=== PATIENT | male | born 1970 | race Caucasian/White ===

== ENCOUNTER 2016-06-22 17:00 | Emergency (ER) | payer BC ==
[2016-06-22] MEDS: NORMAL SALINE 1,000 ML IV ONE ×2 (17:48→19:32)
[2016-06-22 17:56] LABS: Hemoglobin 16.8 gm/dL (13.5-18.0); Mean Cell Volume 88.7 fl (78-100); Mean Corpuscular Hemoglobin 31.1 pg (27-31); Mean Platelet Volume 9.4 fl (6.0-9.5); Neutrophil # 12.5 K/mm3 (1.3-6.0); Neutrophil % 88.2 % (42-75.0); Platelet Count 209 K/mm3 (150-450); Red Blood Count 5.41 M/mm3 (4.7-6.0); Red Cell Distribution Width 13.2 % (11.5-14.0); White Blood Count 14.1 K/mm3 (4.0-10.5)
[2016-06-22 18:08] LABS: Albumin * 3.7 gm/dl (3.4-5.0); Anion Gap 13.4 mmol/L (6.8-13.8); BUN/Creatinine Ratio 16.3 (9.0-21.6); Bilirubin, Total 0.6 mg/dL (0.0-1.1); Calcium * 9.1 mg/dL (7.9-10.9); Carbon Dioxide 25.2 mmol/L (24-32.6); Potassium 4.6 mmol/L (3.4-4.6); Total Protein 7.4 gm/dL (6.2-8.2)
[2016-06-22] MEDS: PROMETHAZINE HCL 25 MG in DEXTROSE 5 % IN WATER 50 ML IV ONE ×2 (18:20)
--- NOTE | 2016-06-22 18:26 | ERNOTE ---
Medical Problem HPI - Narrative Date of Service: 06/22/16 - General Chief Complaint: Nausea/Vomiting Time Seen by Provider: 06/22/16 17:11 Source: patient Exam Limitations: no limitations - Immun/Allergies/Home Medications Immunizations: IMMUNIZATION HX Immunizations Up to Date Yes History of Influenza Vaccine No Hx Pneumococcal Vaccination No Allergies/Adverse Reactions: Allergies codeine Adverse Reaction (Intermediate, Verified 06/22/16 17:09) Vomiting Sulfa (Sulfonamide Antibiotics) Adverse Reaction (Unknown, Verified 06/22/16 17: 09) Home Medications: HOME MEDICATIONS Hydrocodone/Acetaminophen [[place] 5-325 Tablet] 1 - 2 tab PO QID PRN #20 tab [Last Taken Unknown] - History of Present History Narrative: Patient presents to the ED with severe abdominal cramps and nausea with recurrent diarrhea. No fever noted. No other sick contacts. No blood in the stool. Nothing makes this better or worse. Has not seen anything else for this. No dysuria. No bad food exposures. Cramping diffusely in the abdomen, pain severe. Timing: constant, getting worse Severity: severe Modifying Factors - (Improves): Present: other - nothing Modifying Factors - (Worsens): Present: other - nothing Review of Systems - Review of Systems Constitutional: Absent: fever ENT: Present: no symptoms reported Respiratory: Absent: shortness of breath Cardiology: Present: other - low chest pain with the abdominal cramps since this am. Gastrointestinal/Abdominal: Present: See HPI, abdominal pain Genitourinary: Absent: dysuria All Other Systems: All systems neg except as marked - Patient's Past Medical History Patient History - Medical: Other Patient History - Cardiac/Respiratory: No pertinent hx Patient History - Cancer: No Hx of Cancer Patient History - Surgical Procedures: Other Patient History - Other: None - Social History Living Situations: alone Smoking Status: Current every day smoker Have you smoked in the past 12 months: Yes Alcohol Use: occasionally Drug Use: none - Immunizations Immunizations Up to Date: Yes Hx Pneumococcal Vaccination: No History of Influenza Vaccine: No Physical Exam - Physical Exam General Appearance: Present: alert, mild distress Eye Exam: Normal inspection: bilateral, PERRL: bilateral Ears, Nose, Throat: Present: normal ENT inspection Neck: Present: normal inspection Respiratory: Present: no respiratory distress, normal breath sounds, no accessory muscle use, lungs clear Cardiovascular/Chest: Present: regular rate, rhythm, normal peripheral pulses Gastrointestinal/Abdominal: Present: normal bowel sounds, soft, tenderness, other - MOderate diffuse and right sided tenderness. No peritoneal signs. Absent: guarding, rebound Back Exam: Absent: CVA tenderness (R), CVA tenderness (L) Extremity Exam: Present: normal inspection Neurological Exam: Present: alert, normal mood/affect, no motor/sensory deficits. Absent: motor weakness Skin Exam: Absent: skin rash ED Progress - Results and Orders Patient's Lab Results:: I have reviewed the patient's lab results. - Vital Signs Patient's Vital Signs:: I have reviewed the patient's vital signs. Vital Signs: Vital Signs 06/22/16 17:06 Temperature 36.3 C L Pulse Rate 113 H Respiratory 18 Rate Blood Pressure 135/85 O2 Sat by Pulse 93 Oximetry - EKG EKG read: Interp. by me EKG Comments: Sinus Tach, rate 104. Non-specific ST/T wave changes, no STEMI. - Progress/Reassessment Chief Complaint: Nausea/Vomiting - Transfer of Care Physician Sign Out: Trever Norris Brief History: Vomiting/diarrhea, abdominal pain, elevated WBC Receiving Physician: Eduardo Beasley Pending Results: CT/MRI results Expected Disposition: Discharge Departure - Departure Clinical Impression: Abdominal pain
[2016-06-22] MEDS ORDERED: DICYCLOMINE HCL 10 MG/ML AMPUL IM ONE ×2 (18:37→22:32)
[2016-06-22] MEDS: DICYCLOMINE HCL 10 MG/ML AMPUL IM ONE ×2 (18:38→22:38)
[2016-06-22 18:44] LABS: Urine Bilirubin Negative (NEGATIVE); Urine Blood Negative /ul (NEGATIVE); Urine Ketone 5 mg/dL (NEGATIVE); Urine Nitrite Negative (NEGATIVE); Urine Protein Negative (NEGATIVE); Urine Specific Gravity 1.025 SP.GR. (1.005-1.030); Urine Urobilinogen Normal (NORMAL)
[2016-06-22 18:57] LABS: Urine Appearance Clear; Urine Color Yellow
[2016-06-22 18:58] LABS: Urine Bacteria None Seen; Urine RBC None Seen /hpf (0-5); Urine WBC None Seen /hpf (0-5)
[2016-06-22] MEDS ORDERED: ONDANSETRON HCL/PF 2 MG/ML VIAL ONE (19:58)
[2016-06-22] MEDS: ONDANSETRON HCL/PF 2 MG/ML VIAL IV ONE (20:01)
[2016-06-22] MEDS ORDERED: diphenhydrAMINE HCL 50 MG/ML VIAL ONE (22:32)
[2016-06-22] MEDS ORDERED: METOCLOPRAMIDE HCL 5 MG/ML VIAL ONE (22:32)
[2016-06-22] MEDS ORDERED: PROMETHAZINE HCL 25 MG/ML AMPUL ONE (22:32)
[2016-06-22] MEDS ORDERED: KETOROLAC TROMETHAMINE 30 MG/ML VIAL ONE (22:32)
[2016-06-22] MEDS: PROMETHAZINE HCL 25 MG/ML AMPUL IM ONE (22:40)
[2016-06-22] MEDS: METOCLOPRAMIDE HCL 5 MG/ML VIAL IV ONE (22:42)
[2016-06-22] MEDS: diphenhydrAMINE HCL 50 MG/ML VIAL IV ONE (22:48)
[2016-06-22] MEDS: KETOROLAC TROMETHAMINE 30 MG/ML VIAL IV ONE (22:55)
[2016-06-22 23:27] VITALS: BP 140/86
== END 2016-06-22 23:25 | disposition home or self-care (01) ==
LOC: ER 17:00
DX: R10.9 Unspecified abdominal pain (principal); R11.10 Vomiting, unspecified; R19.7 Diarrhea, unspecified; F17.210 Nicotine dependence, cigarettes, uncomplicated

== ENCOUNTER 2016-12-28 10:14 | Emergency (ER) | payer BC ==
[2016-12-28 10:35] VITALS: BP 109/64
--- OUTSIDE RECORDS SUMMARY | 2016-12-28 10:50 | XMS REPORT | Clinical Summary ---
:1970 Author Organization [facility] [place] [address] Care Team Providers Name Role Phone Unavailable Primary Care Provider Unavailable Source Comments This disclosure is being made pursuant to the [facility] program and maynot contain all information available regarding this patient.[facility] Allergies Not on File Current Medications Be aware that medications may not be up to date as of this document. Alwaysverify current medications with the patient. Not on file Active Problems Not on file Social History Tobacco Use Types Packs/Day Years Used Date Never Assessed Sex Assigned at Date Recorded Not on file Last Filed Vital Signs Not on file Plan of Treatment Health Maintenance Due Date Last Done Comments Retired-Pertussis Vaccine Adult 10/03/1987 Retired-Tetanus Vaccine Adult 10/03/1987 Retired-INFLUENZA VACCINE 01/23/2015 Results Not on filefrom Last 3 Months
--- NOTE | 2016-12-28 10:58 | ERNOTE ---
Medical Problem HPI - Narrative Date of Service: 12/28/16 - General Chief Complaint: Foreign Body Time Seen by Provider: 12/28/16 10:30 Source: patient, RN notes reviewed Exam Limitations: no limitations - Immun/Allergies/Home Medications Immunizations: IMMUNIZATION HX Immunizations Up to Date Yes History of Influenza Vaccine No Hx Pneumococcal Vaccination No Allergies/Adverse Reactions: Allergies codeine Adverse Reaction (Intermediate, Verified 12/28/16 10:30) Vomiting Sulfa (Sulfonamide Antibiotics) Adverse Reaction (Unknown, Verified 12/28/16 10: 30) Home Medications: HOME MEDICATIONS NK [No Home Medication] 12/28/16 [Last Taken Unknown] - History of Present History Narrative: 46 y/o male ambulatory to the ED for an fish hook embedded in the dorsum of the right hand between the 2nd and 3rd MCP joints. This happened just before arrival. The hook was new. He reports having a tetanus vaccination 5 years ago. Date (Duration): 12/28/16 Review of Systems - Review of Systems Constitutional: Absent: recent illness, fever, chills EYE: Present: no symptoms reported ENT: Present: no symptoms reported Respiratory: Present: no symptoms reported Cardiology: Absent: chest pain, syncope Gastrointestinal/Abdominal: Absent: nausea, vomiting Genitourinary: Present: no symptoms reported Musculoskeletal: Absent: joint pain, joint swelling Skin: Absent: rash, lesions, lumps, change in color Neurological: Absent: weakness, numbness, tingling Endocrine: Present: no symptoms reported Hematologic/Lymphatic: Absent: easy bruising, easy bleeding Psych: Present: no symptoms reported - Patient's Past Medical History Patient History - Medical: Other Patient History - Cardiac/Respiratory: No pertinent hx Patient History - Cancer: No Hx of Cancer Patient History - Surgical Procedures: Other Patient History - Other: None - Social History Living Situations: alone Abuse History: No History of abuse Psych History: No pertinent hx Smoking Status: Current every day smoker Have you smoked in the past 12 months: Yes Alcohol Use: occasionally Drug Use: none - Immunizations Immunizations Up to Date: Yes Hx Pneumococcal Vaccination: No History of Influenza Vaccine: No Physical Exam - Physical Exam General Appearance: Present: wd/wn, alert, no apparent distress Head Exam: Present: normal inspection Respiratory: Present: no respiratory distress, no accessory muscle use Cardiovascular/Chest: Present: normal peripheral pulses Extremity Exam: Present: normal range of motion, no edema, other - Fish hook embedded in dorsal surface of right hand between 2nd and 3rd MCP joints. Absent : joint redness, joint swelling Neurological Exam: Present: alert, oriented, normal mood/affect, no motor/ sensory deficits Skin Exam: Present: normal color, warm/dry ED Progress - Vital Signs Patient's Vital Signs:: I have reviewed the patient's vital signs. Vital Signs: Vital Signs 12/28/16 10:27 Temperature 36.3 C L Pulse Rate 96 Respiratory 14 Rate Blood Pressure 109/64 O2 Sat by Pulse 96 Oximetry - Progress/Reassessment Chief Complaint: Foreign Body Progress:: Improved Procedures Location: Fish hook - right hand How removed: Forceps Complications: Pt marialuisa procedure well Comments: Skin surrounding fish hook prepped with betadine and infiltrated with 3 ml lidocaine 2%. Hook grasped with forceps, embedded claire pushed through skin and clipped off, remaining hook backed out through original wound. Antibiotic ointment and band aid applied. Minimal blood loss. Departure - Departure Clinical Impression: Fish hook injury of right hand Qualifiers: Encounter type: initial encounter Qualified Code(s): S69.91XA - Unspecified injury of right wrist, hand and finger(s), initial encounter Disposition: Home self-care Condition: Good Additional Instructions: Keep wound clean Apply antibiotic ointment and bandaid as needed Return for redness, pain, swelling or drainage from wound - or other concerns
== END 2016-12-28 11:01 | disposition home or self-care (01) ==
LOC: ER 10:14
DX: S61.441A Puncture wound with foreign body of right hand, initial encounter (principal); X58.XXXA Exposure to other specified factors, initial encounter; Y93.89 Activity, other specified; Y92.9 Unspecified place or not applicable